=== PATIENT | female | born 1975 | race Caucasian/White ===

== ENCOUNTER → 2017-11-08 07:18 | Outpatient (CLI) | payer BC, SELFPAY ==
--- NOTE | 2017-11-08 | DI.US.S_ITS ---
PROCEDURE: US OB >= 14 WEEKS FETUS INDICATIONS: 20 WEEK ANATOMY OUTSIDE/PRIOR DATING DATA: Last menstrual period (LMP): 07/13/2017. LMP-based estimated date of delivery (HARJIT): 04/05/2018. First dating scan (date and location): 08/23/2017. Estimated date of delivery (HARJIT) from first dating scan: 04/01/2018. TECHNIQUE: Real-time scanning was performed of the fetus, with image documentation and biometric measurements. Endovaginal scanning: Not required COMPARISON: [facility], , OB COMPLETE LESS THAN 14 WKS, 08/23/2017, 7:25. FINDINGS: General: A single living intrauterine gestation is present. Presentation: Breech. Placenta: Placental position is posterior, without previa. Amniotic fluid index: 13.1 cm, normal range is 5-24 cm. heart rate: 145 beats per minute. Maternal cervical canal: 3.6 cm long. Normal lower limit is 2.5 cm. biometrics: Biparietal diameter: 19 weeks 3 days Head circumference: 20 weeks 2 days Abdominal circumference: 19 weeks 6 days Femur length: 20 weeks 2 days Estimated gestational age from initial scan: 19 weeks 3 days Composite gestational age from present scan: 20.0 weeks, normal growth Estimated weight and percentile: 329 g at the 81st percentile Measurement variability for biometric dating: +/- 7 days from 14 weeks to 15 weeks 6 days gestation, +/- 10 days from 16 weeks to 21 weeks 6 days gestation, +/- 2 weeks from 22 weeks to 27 weeks 6 days gestation, +/- 3 weeks for 28 weeks gestation or later. weight reference: 4500 g or EFW >90/95% is considered macrosomia or large for gestational age. EFW <10% is small for gestational age. EFW 5% or less is considered intra-uterine growth restriction. Anatomic survey: Neuro: Ventricles are non-dilated at less than 10 mm. Cisterna magna is normal at 3-11 mm. Cerebellum is normal in size and morphology. Nuchal skin fold: Normal at less than 6 mm between 14-21 weeks gestational age. Face: Nose and lips, facial profile are not well seen. Spine: No evidence for spina bifida. Heart: 4-chambered heart is present, with normal ventricular outflow tracts. Diaphragm: Diaphragm is intact. Stomach: Left-sided stomach is present. Kidneys: No hydronephrosis. Normal is less than 5 mm in 2nd trimester, less than 7 mm in 3rd trimester. Cord: 3-vessel cord has orthotopic insertion. Bladder: Normal in size. Extremities: All 4 extremities identified. IMPRESSION: Single, live intrauterine gestation in breech position showing composite gestational age of 20.0 weeks, normal growth and normal anatomy except the face and profile are not well seen secondary to position. Dictated by: Dawson Wade M.D. on 11/08/2017 at 8:19 Approved by: Dawson Wade M.D. on 11/08/2017 at 8:22
== END ==
PROVIDERS: Family Provider Family Medicine; PCP Family Medicine; Referring Provider Obstetrics & Gynecology; Visit Provider Family Medicine
DX: Z36.89 Encounter for other specified antenatal screening (principal); Z3A.20 20 weeks gestation of pregnancy
CPT/HCPCS: 76811

== ENCOUNTER → 2017-12-25 07:20 | Outpatient (CLI) | payer BC, SELFPAY ==
--- NOTE | 2017-12-25 | DI.US.S_ITS ---
PROCEDURE: US OB FOLLOW UP INDICATIONS: RE-EVAL FACIAL PROFILE OUTSIDE/PRIOR DATING DATA: Last menstrual period (LMP): 07/13/17. LMP-based estimated date of delivery (HARJIT): 04/05/18. First dating scan (date and location): 08/23/17. Estimated date of delivery (HARJIT) from first dating scan: 04/01/18, plus or minus 5 days. TECHNIQUE: Real-time scanning was performed of the fetus, with image documentation. Endovaginal scanning: Not necessary for this examination. COMPARISON: [facility], US OB >= 14 WEEKS FETUS, 11/14/2017, 8:31. [facility], US OB >= 14 WEEKS FETUS, 11/08/2017, 7:24. [facility], OB COMPLETE LESS THAN 14 WKS, 08/23/2017, 7:25. FINDINGS: A single living intrauterine gestation is present. Presentation: Vertex. Placenta: Placental position is posterior, without previa. Amniotic fluid index: 19.1 cm, normal range is 5-24 cm. heart rate: 155 beats per minute. Estimated gestational age from initial scan: 26 weeks 1 day. The facial profile, lips and orbits were normal, not well-visualized on the prior OB ultrasound. IMPRESSION: Completion of anatomic survey. Normal facial profile, lips, and orbits areas. Delivery date is projected be centered on 04/01/18, plus or -5 days. Vertex presentation. Dictated by: Yousuf Nails M.D. on 12/25/2017 at 11:07 Approved by: Yousuf Nails M.D. on 12/25/2017 at 11:10
== END ==
PROVIDERS: Family Provider Family Medicine; PCP Family Medicine; Visit Provider Family Medicine
DX: Z36.89 Encounter for other specified antenatal screening (principal); Z3A.26 26 weeks gestation of pregnancy
CPT/HCPCS: 76816

== ENCOUNTER → 2018-01-08 14:53 | Outpatient (CLI) | payer BC, SELFPAY | END | disposition home or self-care (01) | LOC: LABOR 15:15 → OB 01-10 08:53 | PROVIDERS: Family Provider Obstetrics & Gynecology; PCP Family Medicine; Visit Provider Family Medicine | DX: Z34.03 Encounter for supervision of normal first pregnancy, third trimester (principal); Z3A.28 28 weeks gestation of pregnancy | CPT/HCPCS: 59025; G0378; G0379 ==

== ENCOUNTER 2018-01-15 15:56 | Outpatient (CLI) | payer BC, SELFPAY ==
--- NOTE | 2018-01-20 18:14 | PM.OBTRLD ---
Visit Information Visit Information Date of evaluation: 01/15/18 Primary OB Provider: Larisa Khoury On-call OB Provider: Rebecca Prakash Reason for Evaluation: Yes non-stress test non-stress test reason: other (History of demise) PFSH Surgical History History of third molar tooth extraction (Resolved) Status post tonsillectomy and adenoidectomy (Resolved) Social History Smoking Status: Never smoker Evaluation Evaluation Baseline heart rate: 145 Variability: Moderate (11-25) monitor accelerations: Present monitor decelerations: Absent Category of Tracing: I Diagnosis, Plan/Disposition Final Diagnosis (1) 33 weeks gestation of : Current Visit: No Status: Acute Plan/Disposition Plan: Assessment: 42-year-old 2 para 0100 at 33 weeks gestation with a history of demise with a category 1 nonstress test Plan: kick count Follow-up as scheduled for a nonstress test next week OB Disposition: home
--- NOTE | 2018-01-20 18:17 | P.TNLD_ITS ---
Visit Information Visit Information Date of evaluation: 01/15/18 Primary OB Provider: Larisa Khoury On-call OB Provider: Rebecca Prakash Reason for Evaluation: Yes non-stress test non-stress test reason: other ( History of demise) PFSH Surgical History History of third molar tooth extraction (Resolved) Status post tonsillectomy and adenoidectomy (Resolved) Social History Smoking Status: Never smoker Evaluation Evaluation Baseline heart rate: 145 Variability: Moderate (11-25) monitor accelerations: Present monitor decelerations: Absent Category of Tracing: I Diagnosis, Plan/Disposition Final Diagnosis (1) 33 weeks gestation of : Current Visit: No Status: Acute Plan/Disposition Plan: Assessment: 42-year-old 2 para 0100 at 33 weeks gestation with a history of demise with a category 1 nonstress test Plan: kick count Follow-up as scheduled for a nonstress test next week OB Disposition: home
== END 2018-01-15 16:39 | disposition home or self-care (01) ==
LOC: LABOR 16:35 → OB 01-16 16:27
PROVIDERS: Family Provider Obstetrics & Gynecology; PCP Family Medicine; Visit Provider Family Medicine
DX: Z34.03 Encounter for supervision of normal first pregnancy, third trimester (principal); Z3A.29 29 weeks gestation of pregnancy
CPT/HCPCS: 59025; G0378; G0379

== ENCOUNTER → 2018-01-21 15:56 | Outpatient (CLI) | payer BC, SELFPAY | END | disposition home or self-care (01) | LOC: LABOR 15:58 → OB 03-04 12:36 | PROVIDERS: Family Provider Obstetrics & Gynecology; PCP Family Medicine; Visit Provider Obstetrics & Gynecology | DX: O09.293 Supervision of pregnancy with other poor reproductive or obstetric history, third trimester (principal); Z3A.29 29 weeks gestation of pregnancy | CPT/HCPCS: 59025; G0378; G0379 ==

== ENCOUNTER 2018-01-28 16:00 | Outpatient (CLI) | payer BC, SELFPAY | END 2018-01-28 16:45 | disposition home or self-care (01) | LOC: OB 01-31 05:39 | PROVIDERS: Family Provider Obstetrics & Gynecology; PCP Family Medicine; Visit Provider Family Medicine | DX: O09.293 Supervision of pregnancy with other poor reproductive or obstetric history, third trimester (principal); Z3A.30 30 weeks gestation of pregnancy | CPT/HCPCS: 59025; G0378; G0379 ==

== ENCOUNTER → 2018-02-04 15:57 | Outpatient (CLI) | payer BC, SELFPAY | END | disposition home or self-care (01) | PROVIDERS: Family Provider Obstetrics & Gynecology; PCP Family Medicine; Visit Provider Obstetrics & Gynecology | DX: O09.293 Supervision of pregnancy with other poor reproductive or obstetric history, third trimester (principal); Z3A.31 31 weeks gestation of pregnancy | CPT/HCPCS: 59025; G0378; G0379 ==

== ENCOUNTER → 2018-02-11 15:52 | Outpatient (CLI) | payer BC, SELFPAY | END | disposition home or self-care (01) | LOC: LABOR 15:58 → OB 02-13 11:31 | PROVIDERS: Family Provider Obstetrics & Gynecology; PCP Family Medicine; Visit Provider Family Medicine | DX: O09.293 Supervision of pregnancy with other poor reproductive or obstetric history, third trimester (principal); Z3A.32 32 weeks gestation of pregnancy | CPT/HCPCS: 59025; G0378; G0379 ==

== ENCOUNTER → 2018-02-14 13:54 | Outpatient (CLI) | payer BC, SELFPAY | END | disposition home or self-care (01) | LOC: LABOR 14:02 → OB 02-19 08:07 | PROVIDERS: Family Provider Obstetrics & Gynecology; PCP Family Medicine; Visit Provider Family Medicine | DX: Z34.83 Encounter for supervision of other normal pregnancy, third trimester (principal); Z3A.33 33 weeks gestation of pregnancy | CPT/HCPCS: 59025; G0378; G0379 ==

== ENCOUNTER → 2018-02-18 15:51 | Outpatient (CLI) | payer BC, SELFPAY | END | disposition home or self-care (01) | LOC: LABOR 15:54 → OB 02-19 10:23 | PROVIDERS: Family Provider Obstetrics & Gynecology; PCP Family Medicine; Visit Provider Obstetrics & Gynecology | DX: Z34.83 Encounter for supervision of other normal pregnancy, third trimester (principal); Z3A.33 33 weeks gestation of pregnancy | CPT/HCPCS: 59025; G0378; G0379 ==

== ENCOUNTER 2018-02-21 12:36 | Outpatient (CLI) | payer BC, SELFPAY | END 2018-02-21 13:15 | disposition home or self-care (01) | LOC: LABOR 13:32 → OB 02-25 10:44 | PROVIDERS: Family Provider Obstetrics & Gynecology; PCP Family Medicine; Visit Provider Family Medicine | DX: Z34.83 Encounter for supervision of other normal pregnancy, third trimester (principal); Z3A.34 34 weeks gestation of pregnancy | CPT/HCPCS: 59025; G0378; G0379 ==

== ENCOUNTER → 2018-02-25 12:41 | Outpatient (CLI) | payer BC, SELFPAY | END | disposition home or self-care (01) | LOC: LABOR 13:58 → OB 02-27 15:41 | PROVIDERS: Family Provider Obstetrics & Gynecology; PCP Family Medicine; Visit Provider Obstetrics & Gynecology | DX: Z34.83 Encounter for supervision of other normal pregnancy, third trimester (principal); Z3A.34 34 weeks gestation of pregnancy | CPT/HCPCS: 59025; G0378; G0379 ==

== ENCOUNTER → 2018-02-26 16:40 | Outpatient (CLI) | payer BC, SELFPAY | END | disposition home or self-care (01) | LOC: LABOR 17:06 → OB 02-27 15:44 | PROVIDERS: Family Provider Obstetrics & Gynecology; PCP Family Medicine; Visit Provider Family Medicine | DX: Z34.83 Encounter for supervision of other normal pregnancy, third trimester (principal); Z3A.35 35 weeks gestation of pregnancy | CPT/HCPCS: 59025; G0378; G0379 ==

== ENCOUNTER 2018-02-28 15:12 | Observation (INO) | payer BC, SELFPAY | END 2018-02-28 16:10 | disposition home or self-care (01) | PROVIDERS: Admitting Provider Family Medicine; Family Provider Obstetrics & Gynecology; PCP Family Medicine; Visit Provider Family Medicine | DX: Z34.83 Encounter for supervision of other normal pregnancy, third trimester (principal); Z3A.35 35 weeks gestation of pregnancy | CPT/HCPCS: 59025; G0378; G0379 ==

== ENCOUNTER 2018-03-04 12:33 | Outpatient (CLI) | payer BC, SELFPAY | END 2018-03-04 13:20 | disposition home or self-care (01) | LOC: LABOR 12:59 → OB 15:37 | PROVIDERS: Family Provider Obstetrics & Gynecology; PCP Family Medicine; Visit Provider Family Medicine | DX: Z34.83 Encounter for supervision of other normal pregnancy, third trimester (principal); Z3A.35 35 weeks gestation of pregnancy | CPT/HCPCS: 59025; 87081; G0378; G0379 ==

== ENCOUNTER → 2018-03-04 16:54 | Outpatient (REF) | payer BC, SELFPAY | LOC: LAB 16:54 | PROVIDERS: Family Provider Obstetrics & Gynecology; PCP Family Medicine; Visit Provider Family Medicine | DX: Z34.03 Encounter for supervision of normal first pregnancy, third trimester (principal) | CPT/HCPCS: 87081 ==

== ENCOUNTER → 2018-03-07 13:36 | Outpatient (CLI) | payer BC, SELFPAY | END | disposition home or self-care (01) | LOC: LABOR 17:26 → OB 03-08 08:23 | PROVIDERS: Family Provider Obstetrics & Gynecology; PCP Family Medicine; Visit Provider Family Medicine | DX: Z34.83 Encounter for supervision of other normal pregnancy, third trimester (principal); Z3A.36 36 weeks gestation of pregnancy | CPT/HCPCS: 59025; G0378; G0379 ==

== ENCOUNTER 2018-03-11 15:54 | Outpatient (CLI) | payer BC, SELFPAY | END 2018-03-11 16:49 | disposition home or self-care (01) | LOC: OB 03-12 09:50 | PROVIDERS: Family Provider Obstetrics & Gynecology; PCP Family Medicine; Visit Provider Family Medicine | DX: Z34.83 Encounter for supervision of other normal pregnancy, third trimester (principal); Z3A.36 36 weeks gestation of pregnancy | CPT/HCPCS: 59025; G0378; G0379 ==

== ENCOUNTER → 2018-03-14 12:45 | Outpatient (CLI) | payer BC, SELFPAY | LOC: LABOR 14:03 → OB 03-15 10:47 | PROVIDERS: Family Provider Obstetrics & Gynecology; PCP Family Medicine; Visit Provider Family Medicine | DX: Z34.83 Encounter for supervision of other normal pregnancy, third trimester (principal); Z3A.37 37 weeks gestation of pregnancy | CPT/HCPCS: 59025; G0378; G0379 ==

== ENCOUNTER 2018-03-19 15:48 | Outpatient (CLI) | payer BC, SELFPAY | END 2018-03-19 16:45 | disposition home or self-care (01) | LOC: OB 03-25 15:42 | PROVIDERS: Family Provider Obstetrics & Gynecology; PCP Family Medicine; Visit Provider Obstetrics & Gynecology | DX: Z34.83 Encounter for supervision of other normal pregnancy, third trimester (principal); Z3A.38 38 weeks gestation of pregnancy | CPT/HCPCS: 59025; G0378; G0379 ==

== ENCOUNTER 2018-03-22 14:21 | Outpatient (CLI) | payer BC, SELFPAY | END 2018-03-22 15:05 | disposition home or self-care (01) | LOC: LABOR 15:05 → OB 03-25 15:44 | PROVIDERS: Family Provider Obstetrics & Gynecology; PCP Family Medicine; Visit Provider Family Medicine | DX: Z34.83 Encounter for supervision of other normal pregnancy, third trimester (principal); Z3A.38 38 weeks gestation of pregnancy | CPT/HCPCS: 59025; G0378; G0379 ==

== ENCOUNTER 2018-03-25 09:52 | Inpatient (IN) | payer BC, SELFPAY ==
[2018-03-25] VITALS (10 sets, daily range): BP systolic 89–148; BP diastolic 57–98; PULSE 86–93; RESP 9–18; TEMP 36.6–36.9; O2SAT 95–98
[2018-03-25] MEDS: LACTATED RINGERS 1,000 ML 999 ML IV (10:50)
[2018-03-25 11:07] LABS: Add Manual Diff / Slide Review NO; Basophils Percent Auto 0.7 % (0-2); Eosinophils Percent Auto 1.7 % (2-4); Hemoglobin 13.3 g/dL (12.0-16.0); Lymphocytes Percent Auto 17.1 % (25-40); Mean Corpuscular Hemoglobin 29.3 PG (26-34); Mean Corpuscular Volume 86.2 fL (80-100); Monocytes Percent Auto 6.3 % (3-14); Neutrophils Absolute Auto 8000 /uL (3000-5900); Neutrophils Percent Auto 74.2 % (50-75); Platelet Count 279 X10^3/uL (150-400); Red Blood Cell Count 4.53 X10^6/uL (4.0-5.2); Red Cell Distribution Width 19.5 % (11.6-14.8); White Blood Cell Count 10.8 X10^3/uL (4.5-11.0)
[2018-03-25] MEDS: CEFAZOLIN 2 GM/100 ML FROZ.PIGGY IV (12:05)
--- NOTE | 2018-03-25 12:51 | SUR.OPER ---
Supine on Padded OR bed, head on pillow, safety belt at thigh, arms secured on padded arm boards at <90 degrees abduction. Bump under right buttock. Legs uncrossed with pillow under knees, gel pad to heels, tape over blanket to lower legs.
--- NOTE | 2018-03-25 13:44 | SUR.PHASEI ---
report called to KYUNG Nunez in center. Pt in stable condition, vss. Dr. Henriquez aware of pt spinal level in pacu. Per Dr. Henriquez, pt ok to be transferred to center at this time.
--- NOTE | 2018-03-25 13:59 | SUR.PHASEI ---
Transferred pt to center in stable condition, vss. pt family at bedside upon arrival to center. Transferred care of pt to Janna Nunez at that time.
[2018-03-25] MEDS: LACTATED RINGERS 1,000 ML 100 ML IV (14:10)
[2018-03-25] MEDS: KETOROLAC 30 MG/ML VIAL IV (20:31)
[2018-03-25] MEDS: diphenhydrAMINE 50 MG/ML VIAL 25 MG IV (22:25)
[2018-03-25] MEDS: LANOLIN OINT 7 GM 1 APPLIC TOP (22:25)
[2018-03-26 02:48] VITALS: TEMP 36.6
[2018-03-26] MEDS: KETOROLAC 30 MG/ML VIAL IV ×2 (02:48→08:20)
[2018-03-26 03:30] VITALS: TEMP 36.5
[2018-03-26 06:25] LABS: Hemoglobin 11.4 g/dL (12.0-16.0)
[2018-03-26] MEDS: DOCUSATE 250 MG CAPSULE PO (07:39)
[2018-03-26] MEDS: LEVOTHYROXINE 75 MCG TABLET PO (07:44)
[2018-03-26] MEDS: LEVOTHYROXINE 100 MCG TABLET PO (07:48)
--- NOTE | 2018-03-26 08:02 | PM.PREOP ---
Pre-operative Note Interval Note Pre-op Check: Yes History & Physical Reviewed by Physician Changes: No
--- NOTE | 2018-03-26 08:08 | P.OP_ITS ---
Operative Date/Time/Diagnoses Date of procedure: 03/25/18 Time of procedure: 12:45 Pre-op diagnosis: Intrauterine at 39 weeks gestation Persistent breech presentation History of intrauterine demise Post-op diagnosis: same Procedure: Procedures Operation Date: 03/25/18 11:45 Actual Procedures Side Surgeon p Section-Primary Rebecca Prakash MD Indications: 39 weeks gestation Persistent breech presentation History of intrauterine demise Surgeon: Rebecca Prakash Welcome Wagon Hostess: Larisa Khoury Anesthesia Type: Spinal Operative Notes Findings: Live male infant Double footling breech presentation Normal tubes, and ovaries Arcuate uterus Closure Type: primary Specimen(s): other (Placenta, cord blood) Applied: catheter Estimated blood loss (mL): 350 Blood products transfused: none Procedure in detail: The patient was taken to the operating room where she was placed in the seated position. Spinal anesthesia was administered. She was then placed in the dorsal supine position with a leftward tilt. She was prepped and draped in the usual sterile fashion. A timeout was performed. After spinal analgesia was found to be adequate, a Pfannenstiel skin incision was made 2 fingerbreadths above the pubic symphysis and carried through to the underlying layer fascia. The fascia was nicked in the midline, and the incision extended bilaterally with the Rubi scissors. The superior aspect of the fascial incision was grasped with a [place] clamps, elevated, and the underlying rectus muscles dissected off sharply and bluntly. Attention was then turned to the inferior aspect of this incision which in a similar fashion was grasped with a Bony clamps, elevated, and the underlying rectus muscles dissected off sharply and bluntly. The rectus muscles were in the midline. The peritoneum was identified, grasped between 2 hemostats, and entered sharply with the Metzenbaum scissors. This incision was extended superiorly and inferiorly with good visualization of the bladder. The bladder blade was inserted. The vesicouterine peritoneum was identified, grasped with the pickup, and entered sharply with the Metzenbaum scissors. This incision was extended bilaterally, and the bladder flap was created digitally. The bladder blade was reinserted. The lower uterine segment was incised in a transverse fashion with the scalpel. Upon entering the amniotic sac there was a large amount of clear amniotic fluid. The infant was delivered by total breech extraction. The nose and mouth were suctioned with bulb suction. The cord was double clamped and cut. The was handed off to waiting RN and RT. The placenta was delivered manually. The uterus was cleared of all clots and debris. The uterine incision was repaired with #1 chromic in a running interlocking fashion, and a second layer the same suture was used for an imbricating layer. Hemostasis was achieved. The tubes and ovaries were examined and were found to be normal. The uterus was found to be arcuate. The gutters were cleared of all clots and debris. The bladder flap was reapproximated using 2-0 Vicryl in a running fashion. The parietal peritoneum was closed using 2-0 Vicryl in a running fashion. The fascia was reapproximated using 0 Vicryl in a running fashion. Subcutaneous layer was copiously irrigated with warm normal saline. 5 simple interrupted sutures of 3- 0 Vicryl were placed to reapproximate the subcutaneous layer. The skin was closed with 4-0 undyed Vicryl in a subcuticular fashion. Steri-Strips were placed. An Aquacel dressing was placed. The uterus was expressed of a small amount of old blood. Sponge, lap, and instrument counts were correct x-2. The patient tolerated the procedure well, and was taken to PACU in stable condition. Complications: none Post-operative Condition: stable Disposition: PACU Plan for aftercare: To Center after recovery
--- NOTE | 2018-03-26 08:30 | PM.OBPN.1 ---
Subjective - OB Interval history: Patient is a 42-year-old 2 para 1101 postop day # 1 status post primary section for persistent breech presentation at 39 weeks gestation going well. Pain well controlled. Catheter removed this morning and patient has been able to void. No nausea or vomiting. Exam Vital Signs (past 8 hours): - 03/26/18 02:48 03/26/18 03:30 Temperature 97.8 F 97.7 F Oxygen Delivery Method Room Air Narrative Exam Narrative: Generally: Patient is sitting up in bed, holding , no acute distress Lungs: Clear to auscultation bilaterally Cardiovascular: Regular rate and rhythm Abdomen: Soft, good bowel sounds Incision: Clean dry and intact with Aquacel dressing Extremities: Trace edema, negative Homans Objective Labs Result Diagrams: 03/26/18 05:54 Labs: Laboratory Results - last 24 hr 03/25/18 03/25/18 03/26/18 10:02 10:02 05:54 WBC 10.8 RBC 4.53 Hgb 13.3 11.4 L Hct 39.0 35.0 L MCV 86.2 MCH 29.3 MCHC 34.0 RDW 19.5 H Plt Count 279 Neut % (Auto) 74.2 Lymph % (Auto) 17.1 L Esmeralda % (Auto) 6.3 Eos % (Auto) 1.7 L Baso % (Auto) 0.7 Neut # (Auto) 8000 H Blood Type A Positive Antibody Screen Negative Assessment & Plan (1) Status post primary low transverse section: Status: Acute Assessment and plan: Assessment: Postop day # 1 status post primary section for persistent breech presentation Patient has a history of an unexplained intrauterine demise at 36 weeks Plan: Continue routine postop care Current Visit: Yes Time Spent With Patient Total time spent is greater than 50% in coordination of care (as documented) at patient's floor/unit and/or counseling patient: less than 15 minutes
[2018-03-26] MEDS: IBUPROFEN 600 MG TABLET PO ×2 (14:33→20:25)
[2018-03-26] MEDS: OXYCODONE/ACETAMINOPHEN 5/325 TABLET 1 TAB PO (20:25)
[2018-03-27] MEDS: OXYCODONE/ACETAMINOPHEN 5/325 TABLET 1 TAB PO (02:00)
[2018-03-27] MEDS: IBUPROFEN 600 MG TABLET PO ×2 (02:00→08:19)
[2018-03-27] MEDS: LEVOTHYROXINE 75 MCG TABLET PO (08:18)
[2018-03-27] MEDS: DOCUSATE 250 MG CAPSULE PO (08:19)
[2018-03-27] MEDS: LEVOTHYROXINE 100 MCG TABLET PO (08:19)
[2018-03-27 09:51] VITALS: BP 109/70; PULSE 93; RESP 14; TEMP 36.5
--- NOTE | 2018-03-29 05:39 | P.DS_ITS ---
Discharge Providers Date of admission: 03/25/18 09:52 Primary care physician: Larisa Khoury MD Consults: 03/25/18 14:46 Consult to Pharmacy Analyst Routine Comment: Discharge provider: Rebecca Prakash MD Discharge Date: 03/27/18 Summary Date Patient Seen: 03/27/18 Time Patient Seen: 07:45 Hospital Course: Patient is a 42-year-old 2 para 1101 who presented on 03/25/2018 for scheduled primary section due to persistent breech presentation. She underwent a primary section without complication. She was found to have an arcuate uterus at the time of the section. She delivered a live male . Her postoperative course was unremarkable. She was able to void on postop day # 1. She was tolerating a diet. Pain was well controlled. No nausea or vomiting. She was discharged home on 03/27/2018 to follow up at 1 week for an Aquacel dressing removal Peripartum Data Infant Delivery Method: Section (Breech presentation) Procedures: Spinal anesthesia Primary low-transverse section complications: none Discharge Diagnosis (1) Status post primary low transverse section: Status: Acute (2) Breech presentation at : Status: Acute (3) Arcuate uterus: Status: Acute Status at Discharge Functional status at discharge: independent ambulation Overall status at discharge: patient is progressing back to baseline Time Spent with Patient Total time spent providing and/or coordinating discharge services:20 minutes Less than 30 minutes Objective Labs Result Diagrams: 03/26/18 05:54 Discharge Plan Discharge Plan Patient Disposition: Home Discharge comment: Call with fever, chills or bleeding more than a pad in an hour Discharge Med Rec/Prescriptions Prescriptions: New oxycodone-acetaminophen [Percocet] 5-325 mg tablet 1 tab PO Q4-6H PRN (Reason: pain) Qty: 30 RF: 0 Continue LEVOTHYROXINE SODIUM (LEVOTHYROXINE-) 175 mcg PO Q DAY Qty: 0 RF: 0 prenat.vits,simon,sjk-znal-nobia tablet 1 tab PO DAILY RF: 0 Discontinued ferrous sulfate 325 mg (65 mg iron) tablet 325 mg PO DAILY RF: 0 esomeprazole magnesium 40 mg Capsule,Delayed Release(Dr/Ec) 40 mg PO DAILY RF: 0 Follow up/Referrals: Larisa Khoury MD [Primary Care Provider] - 04/01/18 10:15 am (Aquacel dressing removal) Provider Discharge Instructions Diet: Diet as Tolerated Activity: No heavy lifting Skin/Wound/Dressing Care Report to your healthcare provider any signs of infection, such as:: chills, fever, increased pain and unusual drainage Dressing: Do not remove Visit Report/Discharge Packet Instructions: DI for Stand Alone Forms: Discharge: Care Visit Report Forms: Stroke Signs & Symptoms Discharge Data Primary Care Provider: Larisa Khoury Attending Provider: Rebecca Prakash Admit Date/Time: 03/25/18 09:52 Discharges patient from system. Discharge Date/Time: 03/27/18 11:00
== END 2018-03-27 11:00 | disposition home or self-care (01) | DRG 788 ==
PROVIDERS: Admitting Provider Obstetrics & Gynecology; Family Provider Obstetrics & Gynecology; PCP Family Medicine; Visit Provider Obstetrics & Gynecology
PROC: 10D00Z1 Extraction of Products of Conception, Low, Open Approach (ICD-10-PCS; CPT 59514; principal; 2018-03-25 11:45)
DX: O32.1XX0 Maternal care for breech presentation, not applicable or unspecified (principal); Z3A.39 39 weeks gestation of pregnancy; Z37.0 Single live birth; O34.03 Maternal care for unspecified congenital malformation of uterus, third trimester; Q51.3 Bicornate uterus
CPT/HCPCS: 36415; 59050; 59514; 85014; 85018; 85025; 86850; 86900; 86901; J0690; J1200; J1885; J2274; J2405; J2590; J2765

== ENCOUNTER → 2020-04-06 15:56 | Outpatient (CLI) | payer BC, SELFPAY ==
--- NOTE | 2020-04-06 | DI.MG.S_ITS ---
BILATERAL DIGITAL SCREENING MAMMOGRAM 3D/2D WITH CAD: 04/06/2020 CLINICAL: Routine screening. Family history of breast cancer. Comparison is made to exams dated: 03/30/2017 mammogram, 01/23/2013 mammogram, and 09/22/2003 mammogram - [facility]. The tissue of both breasts is heterogeneously dense. This may lower the sensitivity of mammography. Current study was also evaluated with a Computer Aided Detection (CAD) system. No significant masses, calcifications, or other findings are seen in either breast. There has been no significant interval change. IMPRESSION: NEGATIVE There is no mammographic evidence of malignancy. A 1 year screening mammogram is recommended. This exam was interpreted at Station ID: [id number]. NOTE: For mammograms, a report in lay terms will be sent to the patient. Approximately 15% of breast malignancies will not be visualized mammographically. In the management of a palpable breast mass, a negative mammogram must not discourage biopsy of a clinically suspicious lesion. Electronically Signed By: Abel cowart/francia:04/06/2020 17:06:19 letter sent: Normal Exam ACR BI-RADS Category 1: Negative 3341F
== END ==
PROVIDERS: Family Provider Obstetrics & Gynecology; PCP Family Medicine; Referring Provider Family Medicine; Visit Provider Family Medicine
DX: Z12.31 Encounter for screening mammogram for malignant neoplasm of breast (principal); Z80.3 Family history of malignant neoplasm of breast
CPT/HCPCS: 77063; 77067

== ENCOUNTER → 2020-07-29 14:53 | Outpatient (CLI) | payer BC, SELFPAY ==
[2020-07-29] MEDS: COVID-19 VACC #1, MRNA(MOD) 100 MCG/0.5 ML VIAL IM (15:00)
== END ==
PROVIDERS: Family Provider Obstetrics & Gynecology; PCP Family Medicine; Visit Provider Internal Medicine
DX: Z23 Encounter for immunization (principal)
CPT/HCPCS: 0011A; 91301

== ENCOUNTER → 2020-08-26 13:28 | Outpatient (CLI) | payer BC, SELFPAY ==
[2020-08-26] MEDS: COVID-19 VACC #2, MRNA(MOD) 100 MCG/0.5 ML VIAL IM (13:32)
== END ==
PROVIDERS: Family Provider Obstetrics & Gynecology; PCP Family Medicine; Visit Provider Internal Medicine
DX: Z23 Encounter for immunization (principal)
CPT/HCPCS: 0012A; 91301

== ENCOUNTER → 2021-02-23 12:44 | Outpatient (CLI) | payer BC, SELFPAY ==
[2021-02-23 14:29] LABS: COVID19 -Nasal RAPID Negative (Negative)
== END ==
PROVIDERS: Family Provider Obstetrics & Gynecology; PCP Family Medicine; Visit Provider Nurse Practitioner Family
DX: Z20.822 Contact with and (suspected) exposure to COVID-19 (principal); J02.9 Acute pharyngitis, unspecified; R05.9 Cough, unspecified; R09.81 Nasal congestion
CPT/HCPCS: 87635

== ENCOUNTER → 2021-03-01 14:58 | Outpatient (CLI) | payer BC, SELFPAY ==
--- NOTE | 2021-03-01 | DI.MG.S_ITS ---
BILATERAL DIGITAL SCREENING MAMMOGRAM 3D/2D WITH CAD: 03/01/2021 CLINICAL: Routine screening. Family history of breast cancer. Comparison is made to exams dated: 04/06/2020 mammogram, 03/30/2017 mammogram, and 01/23/2013 mammogram - [facility]. The tissue of both breasts is heterogeneously dense. This may lower the sensitivity of mammography. Current study was also evaluated with a Computer Aided Detection (CAD) system. No significant masses, calcifications, or other findings are seen in either breast. There has been no significant interval change. IMPRESSION: NEGATIVE There is no mammographic evidence of malignancy. A 1 year screening mammogram is recommended. This exam was interpreted at Station ID: [id number]. NOTE: For mammograms, a report in lay terms will be sent to the patient. Approximately 15% of breast malignancies will not be visualized mammographically. In the management of a palpable breast mass, a negative mammogram must not discourage biopsy of a clinically suspicious lesion. Electronically Signed By: Farzad john/francia:03/01/2021 16:01:34 letter sent: Normal Exam ACR BI-RADS Category 1: Negative 3341F
== END ==
PROVIDERS: Family Provider Obstetrics & Gynecology; PCP Family Medicine; Referring Provider Family Medicine; Visit Provider Family Medicine
DX: Z12.31 Encounter for screening mammogram for malignant neoplasm of breast (principal); Z80.3 Family history of malignant neoplasm of breast
CPT/HCPCS: 77063; 77067

== ENCOUNTER → 2021-09-02 16:53 | Outpatient (ROUT) | payer BC, SELFPAY ==
[2021-09-02 18:50] LABS: COVID-19 CEPHEID PCR (VTM/NP) Negative (Negative)
== END ==
PROVIDERS: Family Provider Obstetrics & Gynecology; PCP Family Medicine; Visit Provider Family Medicine
DX: J02.9 Acute pharyngitis, unspecified (principal); Z20.822 Contact with and (suspected) exposure to COVID-19
CPT/HCPCS: U0003; U0005

== ENCOUNTER → 2021-12-19 14:22 | Outpatient (CLI) | payer BC, SELFPAY ==
--- NOTE | 2021-12-19 14:25 | DI.RAD.S_ITS ---
PROCEDURE: XR FOOT LT MIN 3V INDICATIONS: Pain in left foot TECHNIQUE: 3 views of the foot were acquired. COMPARISON: None. FINDINGS: Bones: No fractures or dislocations. No suspicious bony lesions. Mild hallux valgus metatarsus prima varus alignment and medial bunion. Soft tissues: No tibiotalar joint effusion. Achilles tendon appears normal. IMPRESSION: Mild hallux valgus alignment and medial bunion. Dictated by: Rad Howard [facility] Interpreted: Pretty Covington MD on 12/19/2021 at 15:34 Transcribed by: ARSH on 12/19/2021 at 15:35 Approved by: Pretty Covington M.D. on 12/19/2021 at 17:36
== END ==
PROVIDERS: Family Provider Obstetrics & Gynecology; PCP Family Medicine; Referring Provider Family Medicine; Visit Provider Family Medicine
DX: M20.12 Hallux valgus (acquired), left foot (principal); M21.612 Bunion of left foot; M79.672 Pain in left foot
CPT/HCPCS: 73630

== ENCOUNTER → 2023-01-09 11:41 | Outpatient (CLI) | payer BC, SELFPAY ==
--- NOTE | 2023-01-09 | DI.MG.S_ITS ---
BILATERAL DIGITAL SCREENING MAMMOGRAM 3D/2D WITH CAD: 01/09/2023 CLINICAL: Routine screening. Family history of breast cancer. Comparison is made to exams dated: 03/01/2021 mammogram, 04/06/2020 mammogram, and 03/30/2017 mammogram - [facility]. Both breasts are heterogeneously dense, which may obscure small masses (category c / 51-75% glandular tissue). Current study was also evaluated with a Computer Aided Detection (CAD) system. There are benign post operative findings in the right breast. No significant masses, calcifications, or other findings are seen in either breast. There has been no significant interval change. IMPRESSION: BENIGN There is no mammographic evidence of malignancy. A 1 year screening mammogram is recommended. Based on Tyrer-Cuzick model (a risk assessment model), the patient's lifetime risk is 22.9% and her 10 year risk is 4.4%. If a patient has an elevated risk, a more comprehensive evaluation should be considered and/or a referral to a genetic counselor. The [employer], [employer], and NCCN Guidelines advise the consideration of Breast MRI as an adjunct to screening mammography in patients whose Lifetime risk to develop breast cancer is 20% or higher. This exam was interpreted at Station ID: [id number]. NOTE: For mammograms, a report in lay terms will be sent to the patient. Approximately 15% of breast malignancies will not be visualized mammographically. In the management of a palpable breast mass, a negative mammogram must not discourage biopsy of a clinically suspicious lesion. Electronically Signed By: Christa watson/francia:01/09/2023 17:22:36 letter sent: Normal Exam ACR BI-RADS Category 2: Benign Finding(s) 3342F
== END ==
PROVIDERS: Family Provider Obstetrics & Gynecology; PCP Family Medicine; Referring Provider Family Medicine; Visit Provider Family Medicine
DX: Z12.31 Encounter for screening mammogram for malignant neoplasm of breast (principal); Z80.3 Family history of malignant neoplasm of breast
CPT/HCPCS: 77063; 77067

== ENCOUNTER 2023-02-26 08:52 | Day surgery (SDC) | payer BC, SELFPAY ==
[2023-02-26] MEDS: LACTATED RINGERS 1,000 ML 150 ML IV (09:05)
[2023-02-26 09:18] VITALS: BP 116/86; PULSE 93; RESP 16; TEMP 36.2; O2SAT 100; BMI 32.0
--- NOTE | 2023-02-26 09:50 | P.HP_ITS ---
History of Present Illness History of Present Illness Date Patient Seen: 02/26/23 Time Patient Seen: 09:51 Chief complaint: Colonoscopy Narrative: Here for colonoscopy for screening purposes. 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) Surgical History S/P Status post tonsillectomy and adenoidectomy History of third molar tooth extraction Social History household members: family Smoking Status: Never smoker Meds Home Medications and Allergies Home Medications Medication Instructions Recorded Confirmed Type LEVOTHYROXINE SODIUM 175 mcg PO Q DAY ##0 05/01/11 02/26/23 History (LEVOTHYROXINE-) prenat.vits,simon,snl-lkxz-uyyfj 1 tab PO DAILY 01/17/18 02/26/23 History bupropion HCl 150 mg 24 hr tablet, 150 mg PO QAM 02/23/23 02/26/23 History extended release trazodone 150 mg tablet 150 mg PO ONCE PM 02/23/23 02/26/23 History Allergies Allergy/AdvReac Type Severity Reaction Status Date / Time No Known Drug Allergies Allergy Verified 02/26/23 09:06 Review of Systems Review of Systems ROS: Yes All systems reviewed with the patient and are negative except as otherwise documented Exam Vital Signs (past 8 hours): - 02/26/23 09:18 Temperature 97.1 F L Pulse Rate 93 H Respiratory Rate 16 Blood Pressure 116/86 Pulse Oximetry 100 Oxygen Delivery Method Room Air Oxygen Delivery Method Room Air Const General: cooperative HENMT Head: normal to inspection Eyes General: appearance normal, both eyes and all related structures Neck Neck: normal visual inspection Chest Chest: normal inspection of the chest Resp Effort & Inspection: normal respiratory effort Cardio Rate: regular rate GI Inspection: normal to inspection Skin General: no rashes or lesions noted Neuro General: patient alert and patient awake Extrem General: normal to inspection and no pedal edema Psych Appearance: grossly normal Assessment & Plan Assessment & Plan narrative: 47-year-old female indicated for colon cancer screening. Colonoscopy is pursued today.
--- NOTE | 2023-02-26 09:51 | PM.PREOP ---
Pre-operative Note Interval Note History & Physical reviewed/Exam performed by Physician: Yes Changes to H&P: No ASA Class (for procedural sedation): II
--- NOTE | 2023-02-26 10:08 | PM.OP.COLON ---
Operative Date/Time/Diagnoses Date of procedure: 02/26/23 Time of procedure: 10:08 Pre-op diagnosis: Colon cancer screening Post-op diagnosis: same Procedure & Clinicians Study performed: Colonoscopy Same procedure as scheduled: Yes Indications: Colon cancer screening Surgeon: Jalil Sanchez Procedure Notes SCOAP/Timeout: Done Procedure in detail: After the risks and benefits were explained, written and verbal informed consent was obtained. The patient was brought into the procedure room and placed into the left lateral decubitus position. Please see anesthesia note for sedation details. Digital rectal examination was accomplished. The scope was introduced into the patient and advanced under direct visualization to the cecum as identified by the appendiceal orifice and ileocecal valve. The scope was slowly withdrawn to carefully examine the mucosa for any defects or lesions. Comprehensive imaging was accomplished throughout the rectum including the dentate line. The colon was decompressed, the scope was then removed from the patient who tolerated the procedure well. Adult colonoscope Bowel prep adequate Scope withdrawal time: 6 minutes Sedation minutes: 12 Specimen(s): none sent Complications: none Impression: No significant polyps mass lesions or inflammatory features identified throughout. Endoscopic diagnosis Visually normal colonoscopy Post-procedure Plan for aftercare: Repeat colonoscopy 10 years; sooner should symptoms warrant an earlier exam. Disposition: PACU
[2023-02-26 10:11] VITALS: BP 110/74; PULSE 73; RESP 16; TEMP 36.2; O2SAT 95
[2023-02-26 10:16] VITALS: BP 109/66; PULSE 72; RESP 14; O2SAT 96
[2023-02-26 10:21] VITALS: BP 124/89; PULSE 76; RESP 11; TEMP 36.6; O2SAT 96
== END 2023-02-26 10:33 | disposition home or self-care (01) ==
PROVIDERS: Family Provider Obstetrics & Gynecology; PCP Family Medicine; Referring Provider Internal Medicine Gastroenterology; Visit Provider Internal Medicine Gastroenterology
PROC: 0DJD8ZZ Inspection of Lower Intestinal Tract, Via Natural or Artificial Opening Endoscopic (ICD-10-PCS; CPT 45378; principal; 2023-02-26 10:00)
DX: Z12.11 Encounter for screening for malignant neoplasm of colon (principal)
CPT/HCPCS: 45378; J2704

== ENCOUNTER → 2024-02-18 11:43 | Outpatient (CLI) | payer BC, SELFPAY ==
--- NOTE | 2024-02-18 | DI.MG.S_ITS ---
BILATERAL DIGITAL SCREENING MAMMOGRAM 3D/2D WITH CAD: 02/18/2024 CLINICAL: Routine screening. Family history of breast cancer. Comparison is made to exams dated: 01/09/2023 mammogram, 03/01/2021 mammogram, and 04/06/2020 mammogram - [facility]. The breasts are heterogeneously dense, which may obscure small masses (category c / 51-75% glandular tissue). Current study was also evaluated with a Computer Aided Detection (CAD) system. No significant masses, calcifications, or other findings are seen in either breast. IMPRESSION: NEGATIVE There is no mammographic evidence of malignancy. A 1 year screening mammogram is recommended. Based on Tyrer-Cuzick model (a risk assessment model), the patient's lifetime risk is 23.0% and her 10 year risk is 4.7%. If a patient has an elevated risk, a more comprehensive evaluation should be considered and/or a referral to a genetic counselor. The [employer], [employer], and NCCN Guidelines advise the consideration of Breast MRI as an adjunct to screening mammography in patients whose Lifetime risk to develop breast cancer is 20% or higher. This exam was interpreted at Station ID: [id number]. NOTE: For mammograms, a report in lay terms will be sent to the patient. Approximately 15% of breast malignancies will not be visualized mammographically. In the management of a palpable breast mass, a negative mammogram must not discourage biopsy of a clinically suspicious lesion. Electronically Signed By: Boris peralta/francia:02/19/2024 06:32:42 letter sent: Normal Exam ACR BI-RADS Category 1: Negative
== END ==
PROVIDERS: Family Provider Obstetrics & Gynecology; PCP Family Medicine; Referring Provider Family Medicine; Visit Provider Family Medicine
DX: Z12.31 Encounter for screening mammogram for malignant neoplasm of breast (principal); Z80.3 Family history of malignant neoplasm of breast; R92.333 Mammographic heterogeneous density, bilateral breasts
CPT/HCPCS: 77063; 77067

== ENCOUNTER → 2025-03-03 11:10 | Outpatient (CLI) | payer BC, SELFPAY ==
--- NOTE | 2025-03-03 11:11 | DI.MG.S_ITS ---
MM screening mammo BI: 03/03/2025. BI-RADS: 1 CLINICAL: 49-year old female for bilateral screening mammogram. Tyrer-Cuzick lifetime risk of 18.1%. No personal or first-degree family history of breast cancer. Current reported family history of breast cancer: maternal grandmother. PRIOR EXAMS 02/18/2024, 01/09/2023, 03/01/2021, 04/06/2020. MAMMOGRAPHY TECHNIQUE: 2D and 3D (tomosynthesis) digital mammographic views obtained, with additional images as needed for full coverage. Current study was also evaluated with a Computer Aided Detection (CAD) system. DENSITY C. The breasts are heterogeneously dense, which may obscure small masses. MAMMOGRAPHY FINDINGS Bilateral: No suspicious mass, asymmetry, microcalcification, or other abnormality seen. IMPRESSION: * No evidence of malignancy. RECOMMENDATIONS Bilateral * Annual screening mammography. OVERALL ASSESSMENT CATEGORY BI-RADS-1: Negative. The [employer] recommends annual screening mammography beginning at age 40 for women with average risk of breast cancer. ELECTRONICALLY SIGNED: Whitley Mondragon M.D. on 03/03/2025 at 04:46:08 PM PT Interpreting Station ID: [id number]
== END ==
LOC: MAMMO 11:11
PROVIDERS: Family Provider Obstetrics & Gynecology; PCP Family Medicine; Referring Provider Family Medicine; Visit Provider Family Medicine
DX: Z12.31 Encounter for screening mammogram for malignant neoplasm of breast (principal); R92.333 Mammographic heterogeneous density, bilateral breasts; Z80.3 Family history of malignant neoplasm of breast
CPT/HCPCS: 77063; 77067